=== PATIENT | male | born 1985 | race Caucasian/White ===

== ENCOUNTER → 2021-03-18 | Outpatient (CLI) | payer OTHER ==
[~2021-03-18] MED LIST: PANT40TA29
== END ==
LOC: EDUNIT# 11:45 → M LABSMTC 11:49
PROVIDERS: ATTEND Anesthesiology
DX: Z20.828 Contact with and (suspected) exposure to other viral communicable diseases (principal); Z11.59 Encounter for screening for other viral diseases

== ENCOUNTER 2021-03-23 06:18 | Day surgery (SDC) | payer OTHER ==
[~2021-03-23] VITALS: Ht 167.6 cm; Wt 93.3 kg
[~2021-03-23 06:18] MED LIST changes: +LIDOCAINE 1% MDV 20ML VIAL SQ PRN; +LR 1,000 ML IV ONE; +dexameTHASONE 4 MG/ML 1ML VIAL (J1100 PER 1MG) IV ONE
[2021-03-23] MEDS ORDERED: OXYMETAZOLINE 0.05% NASAL SPRAY (AFRIN) As Ordered ONE (07:10)
[2021-03-23] MEDS ORDERED: ROCURONIUM BROMIDE 50 MG/5 ML VIAL As Ordered ONE (07:18)
[2021-03-23] MEDS ORDERED: ONDANSETRON 4MG/2ML VIAL As Ordered ONE (07:18)
[2021-03-23] MEDS ORDERED: LIDOCAINE 2% 100MG/5ML SDV (FOR ANES.) As Ordered ONE (07:18)
[2021-03-23] MEDS ORDERED: dexameTHASONE 4 MG/ML 1ML VIAL (J1100 PER 1MG) As Ordered ONE (07:18)
[2021-03-23] MEDS ORDERED: propofoL 200 MG/20 ML VIAL As Ordered ONE (07:19)
[2021-03-23] MEDS ORDERED: fentaNYL 100 MCG/2 ML INJECTION (J3010) As Ordered ONE (07:22)
[2021-03-23] MEDS ORDERED: MIDAZOLAM INJ 2MG/2ML VIAL (J2250 PER 1MG) As Ordered ONE (07:22)
[2021-03-23] MEDS ORDERED: ACETAMINOPHEN 1000MG 100ML IV BTL (OFIRMEV) (J0131 PER 10MG) As Ordered ONE (07:47)
[2021-03-23] MEDS ORDERED: SUGAMMADEX SODIUM 500 MG/5 ML VIAL (BRIDION) As Ordered ONE (07:51)
[2021-03-23] MEDS ORDERED: fentaNYL 100 MCG/2 ML INJECTION (J3010) IV PRN (08:50)
[2021-03-23] MEDS ORDERED: LR 1,000 ML IV SCH ×2 (08:50)
[2021-03-23] MEDS ORDERED: ONDANSETRON 4MG/2ML VIAL IV PRN (08:50)
[2021-03-23] MEDS ORDERED: METOCLOPRAMIDE INJ 10MG/2ML VIAL (J2765 PER 1) IV PRN (08:50)
[2021-03-23] MEDS ORDERED: PERCOCET 5MG/325MG TAB PO PRN (09:05)
[2021-03-23 10:30] VITALS: BP 113/56
--- NOTE | 2021-03-24 09:51 | RO ---
OPERATIVE NOTE DATE OF OPERATION: 03/23/2021 PREOPERATIVE DIAGNOSIS: Asymmetrically enlarged right tonsil. POSTOPERATIVE DIAGNOSIS: Asymmetrically enlarged right tonsil. PROCEDURE PERFORMED: Tonsillectomy. SURGEON: Magdy Xiao MD. BLOCK OUT MACHINE OPERATOR: None. ANESTHESIA: General. CLINICAL PREAMBLE: This 36-year-old man presented to the office with a history of asymmetrically enlarged right tonsil. Physical examination confirmed the presence of asymmetrically enlarged right tonsil. Management options including tonsillectomy and have the tonsil sent for lymphoma protocol to rule out the presence of lymphoma have been discussed with the patient. He understood and consented to the procedure. INTRAOPERATIVE FINDINGS: Both tonsils were resected and sent separately to pathology per lymphoma protocol. OR NARRATION: Patient was identified in preoperative holding and brought to the operating room in stable condition. In the supine position on the operating room table, patient received general anesthesia followed by orotracheal intubation without incident. Patient was prepped and draped in the usual sterile fashion for the procedure. The Carmina-Feliciano mouth gag was inserted and suspended. The right tonsil was medialized using curved Allis forceps. A mucosal incision was made over the superior pole of the right tonsil using the Coblator wand set at 7 for Coblation. The tonsillar capsule was identified, and dissection was carried out along this plane to excise the right tonsil. The left tonsil was then similarly dissected out. At the end of the procedure, both tonsil beds were free of bleeding. Estimated blood loss was less than 10 mL. No complication was encountered. Sponge and instrument counts were correct at the end of the procedure. General anesthesia was reversed, and the patient was extubated and brought to the recovery room in stable condition.
== END 2021-03-23 10:56 | disposition home or self-care (01) ==
LOC: M SDC 06:18
PROVIDERS: ATTEND Otolaryngology
DX: J35.1 Hypertrophy of tonsils (principal); K21.9 Gastro-esophageal reflux disease without esophagitis; Z79.899 Other long term (current) drug therapy
CPT/HCPCS: 42826; 88302; J0131; J1100; J2250; J2405; J3010

== ENCOUNTER → 2021-04-23 | Outpatient (CLI) | payer OTHER ==
[~2021-04-23] MED LIST changes: -LIDOCAINE 1% MDV 20ML VIAL SQ PRN; -LR 1,000 ML IV ONE; -dexameTHASONE 4 MG/ML 1ML VIAL (J1100 PER 1MG) IV ONE
== END ==
LOC: M LABSMTC 10:59
PROVIDERS: ATTEND Anesthesiology
DX: Z20.828 Contact with and (suspected) exposure to other viral communicable diseases (principal); Z11.59 Encounter for screening for other viral diseases

== ENCOUNTER 2021-04-28 12:31 | Day surgery (SDC) | payer OTHER ==
[~2021-04-28] VITALS: Ht 162.6 cm; Wt 90.7 kg
[~2021-04-28 12:31] MED LIST changes: +NS 1,000 ML IV ONE
== END 2021-04-28 13:02 | disposition home or self-care (01) ==
LOC: M OPP 12:31
PROVIDERS: ATTEND Internal Medicine Gastroenterology
DX: R93.3 Abnormal findings on diagnostic imaging of other parts of digestive tract (principal); R13.10 Dysphagia, unspecified; Z53.8 Procedure and treatment not carried out for other reasons

== ENCOUNTER → 2021-07-08 | Outpatient (CLI) | payer OTHER ==
[~2021-07-08] MED LIST changes: -NS 1,000 ML IV ONE
== END ==
LOC: M LABSMTC 11:45
PROVIDERS: ATTEND Anesthesiology
DX: Z20.828 Contact with and (suspected) exposure to other viral communicable diseases (principal); Z11.59 Encounter for screening for other viral diseases

== ENCOUNTER 2021-07-13 07:57 | Day surgery (SDC) | payer OTHER ==
[~2021-07-13] VITALS: Ht 170.2 cm; Wt 96.6 kg
[~2021-07-13 07:57] MED LIST changes: +NS 1,000 ML IV ONE
[2021-07-13] MEDS ORDERED: fentaNYL 100 MCG/2 ML INJECTION (J3010) As Ordered ONE (08:20)
[2021-07-13] MEDS ORDERED: LIDOCAINE 2% 100MG/5ML SDV (FOR ANES.) As Ordered ONE (09:07)
[2021-07-13] MEDS ORDERED: propofoL 200 MG/20 ML VIAL As Ordered ONE (09:07)
[2021-07-13] MEDS ORDERED: LABETALOL 100MG/20ML VIAL As Ordered ONE (09:20)
[2021-07-13] MEDS ORDERED: ONDANSETRON 4MG/2ML VIAL As Ordered ONE (09:22)
--- NOTE | 2021-07-13 09:35 | ROOR ---
Patient Name: Oneil Reis Procedure Date: 07/13/2021 9:11 AM Date of : 1985 Age: 36 Room: [facility] Gender: Male Note Status: Finalized Procedure: Upper GI endoscopy Indications: Dysphagia, Heartburn Providers: Miky Barton MD Referring MD: Sheyla Dumont NP Requesting Provider: Medicines: Monitored Anesthesia Care Complications: No immediate complications. Procedure: Pre-Anesthesia Assessment: - The heart rate, respiratory rate, oxygen saturations, blood pressure, adequacy of pulmonary ventilation, and response to care were monitored throughout the procedure. The Endoscope was introduced through the mouth, and advanced to the second part of duodenum. The upper GI endoscopy was accomplished without difficulty. The patient tolerated the procedure well. Findings: One benign-appearing, intrinsic moderate (circumferential scarring or stenosis; an endoscope may pass) stenosis was found at the gastroesophageal junction. This stenosis measured less than one cm (in length). The stenosis was traversed. A TTS dilator was passed through the scope. Dilation with a 12-13.5-15 mm balloon dilator was performed to 15 mm. The dilation site was examined and showed complete resolution of luminal narrowing. Mucosal changes including longitudinal furrows, mucosal edema and single stenosis at GE junction were found in the entire esophagus. Biopsies were taken with a cold forceps for histology. The entire examined stomach was normal. The examined duodenum was normal. Impression: - Benign-appearing esophageal stenosis at GE junction. Dilated. - Esophageal mucosal changes suspicious for eosinophilic esophagitis. Biopsied. - Normal stomach. - Normal examined duodenum. Recommendation: - Use Protonix (pantoprazole) 20 mg PO BID indefinitely. - Telephone endoscopist for pathology results in 2 weeks. - (the script was sent to your pharmacy on file) - (Start Lactose free, Gluten/Wheat free diet and Flovent dry swallow, if EoE confirmed on biopsy). Procedure Code(s): --- Professional --- 15553, Esophagogastroduodenoscopy, flexible, transoral; with transendoscopic balloon dilation of esophagus (less than 30 mm diameter) 98394, 59, Esophagogastroduodenoscopy, flexible, transoral; with biopsy, single or multiple Diagnosis Code(s): --- Professional --- R12, Heartburn R13.10, Dysphagia, unspecified K22.8, Other specified diseases of esophagus K22.2, Esophageal obstruction CPT copyright 2019 [employer]. All rights reserved. The codes documented in this report are preliminary and upon log manager review may be revised to meet current compliance requirements. Miky Barton MD Miky Barton MD 07/13/2021 9:34:31 AM Electronically signed by Miky Barton MD Number of Addenda: 0 Note Initiated On: 07/13/2021 9:11 AM Estimated Blood Loss: Estimated blood loss: none.
[2021-07-13 09:50] VITALS: BP 144/85
== END 2021-07-13 10:01 | disposition home or self-care (01) ==
LOC: M OPP 07:57
PROVIDERS: ATTEND Internal Medicine Gastroenterology
DX: K22.8 Other specified diseases of esophagus (principal); K22.2 Esophageal obstruction; R13.10 Dysphagia, unspecified; R12 Heartburn; Z79.899 Other long term (current) drug therapy
CPT/HCPCS: 43239; 43249; 88305; J2405; J3010